=== PATIENT | female | born 2005 | race Caucasian/White ===

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

== ENCOUNTER 2025-05-11 15:24 | Emergency (ER) | payer BC ==
[2025-05-11 15:34] VITALS: BMI 24.5
[2025-05-11] MEDS: LACTATED RINGERS SOLUTION 1000 ML INFUS.BAG IV ONE (16:30)
[2025-05-11] MEDS ORDERED: ACETAMINOPHEN INJECTION 100 ML ONE (16:40)
[2025-05-11] MEDS ORDERED: CEFAZOLIN 2 GM/D5W 2 GM/50 ML ML IVPB ONE (16:41)
[2025-05-11] MEDS: CEFAZOLIN 2 GM in DEXTROSE 5%-WATER - 50 ML IVPB ONE (16:45)
[2025-05-11 16:46] LABS: ABSOLUTE IMMATURE GRANULOCYTES 0.05 x10^3/uL (0.0-0.031); BASOPHILS # 0.03 x10^3/uL (0.01-0.08); EOSINOPHIL % 0.1 % (0.7-5.8); EOSINOPHILS # 0.01 x10^3/uL (0.04-0.36); MCHC 31.4 g/dl (32.2-35.5); MEAN CELL VOLUME 81.6 fl (79.4-94.8); MEAN PLT VOLUME 9.4 fl (9.4-12.3); MONOCYTE # 0.51 x10^3/uL (0.24-0.86); MONOCYTE % 3.6 % (4.7-12.5); RDW 13.8 % (12.0-16.2)
[2025-05-11 16:50] LABS: EPI CELLS 22 /uL (0-25.1); HYALINE CASTS 7 /uL (0-3.1); URINE APPEARANCE CLEAR; URINE BACTERIA 1188 /uL (0-1359); URINE BILIRUBIN NEGATIVE (NEGATIVE); URINE COLOR YELLOW; URINE GLUCOSE (UA) NEGATIVE (NEGATIVE); URINE KETONE 1+ (NEGATIVE); URINE LEUK ESTERASE 1+ (NEGATIVE); URINE NITRITE NEGATIVE (NEGATIVE); URINE PROTEIN TRACE (NEGATIVE); URINE RBC 18 /uL (0-23.9); URINE UROBILINOGEN 1.0 mg/dL (0.2-1.0); URINE WBC 160 /uL (0-25.8)
[2025-05-11 16:54] LABS: INR 1.5 (0.83-1.09); PROTHROMBIN TIME (PATIENT) 16.4 SEC (9.7-13.0)
[2025-05-11 16:57] LABS: ACTIVATED PTT 31.3 SECONDS (25.2-36.5)
[2025-05-11 17:14] LABS: SGPT/ALT 40.0 U/L (0-55)
[2025-05-11] MEDS: ACETAMINOPHEN 1000 MG/100 ML BAG IVPB ONE (17:14)
[2025-05-11 17:15] LABS: GLUCOSE,RANDOM 109.0 mg/dL (74-106); TOT PROT 7.5 g/dl (6.4-8.2)
[2025-05-11 17:16] LABS: BG HCT 36.0 % (32.4-45.2); CO2 20.0 mmol/L (21-32); VENOUS BASE EXCESS -2.4 mmol/L (-2-2); VENOUS O2 SATURATION 88.9 % (70-80); VENOUS PCO2 34.4 mmHg (38-52); VENOUS PH 7.414 (7.310-7.410)
[2025-05-11 17:18] LABS: ALK PHOS 108.0 U/L (40-150)
[2025-05-11 17:21] LABS: CREATININE 0.68 mg/dL (0.55-1.3); SGOT/AST 27.0 U/L (5-34)
[2025-05-11] MEDS ORDERED: KETOROLAC TROMETHAMINE 15 MG/ML VIAL ONE (17:28)
[2025-05-11] MEDS: KETOROLAC TROMETHAMINE 30 MG/1 ML VIAL IVPUSH ONE (17:40)
[2025-05-11 18:52] LABS: HCV DIAGNOSTIC IN-HOUSE W/RFLX NON-REACTIVE (NONREACTIVE); HIV INTERPRETATION NEGATIVE (NEGATIVE)
[2025-05-11 20:08] VITALS: BP 103/60; PULSE 87; RESP 20; TEMP 98.2
== END 2025-05-11 22:23 | disposition home or self-care (01) ==
LOC: JER 15:24
PROC: 3E03329 Introduction of Other Anti-infective into Peripheral Vein, Percutaneous Approach (ICD-10-PCS; principal; 2025-05-11)
PROC: 3E0333Z Introduction of Anti-inflammatory into Peripheral Vein, Percutaneous Approach (ICD-10-PCS; 2025-05-11)
PROC: 3E033NZ Introduction of Analgesics, Hypnotics, Sedatives into Peripheral Vein, Percutaneous Approach (ICD-10-PCS; 2025-05-11)
DX: N61.0 Mastitis without abscess (principal); R50.9 Fever, unspecified; R00.0 Tachycardia, unspecified; J35.1 Hypertrophy of tonsils; N64.4 Mastodynia
CPT/HCPCS: 36415; 71045-TC-FY; 71260-TC; 76604; 80053; 81003; 82803; 83605; 84484; 84703; 85025; 85610; 85730; 86803; 86850; 86900; 86901; 87040; 87086; 87389; 87637-QW; 93005; 93010; 99285-25